=== PATIENT | male | born 1940 | race African-American/Black ===

== ENCOUNTER 2024-07-13 10:26 | Emergency (ER) | payer OTHER ==
[~2024-07-13] VITALS: Ht 162.6 cm; Wt 69.0 kg
--- NOTE | 2024-07-13 11:05 | ED.PDOC ---
General HPI Comments VITALS: T:99.0 HR:67 RR:18 O2:96 BP:128/65 SOCIAL HX: DENIES TOBACCO USAGE, ETOH CONSUMPTION, OR ILLICIT DRUG USE SHX: BLADDER PMHX: BLADDER MEDICATIONS: ANTIBIOTICS ALLERGIES: NKA HPI: Poor Historian. 84-year-old male status post some type of urinary bladder procedure yesterday where he also received a Babcock catheter after the procedure and was discharged home on antibiotics. He complaints of the Babcock catheter is coming loose and disconnected from his body and when he urinates it is not going in the bag. Denies any pain or any other acute symptoms. REVIEW OF SYSTEMS: CONSTITUTIONAL: Denies acute: fever, diaphoresis, chills, generalized weakness. HEAD: Denies acute: headache, photophobia Eyes: Denies acute: Double vision, vision loss, eye pain, eye discharge. EARS: Denies acute: tinnitus, hearing loss, ear discharge, ear pain, THROAT: Denies acute: sore throat, swelling, difficulty swallowing , pain with swallowing, change in voice. NECK: Denies acute: neck pain, neck swelling, stiff neck. HEART: Denies acute : chest pain, palpitations, LUNGS: Denies acute: SOB, wheezing, cough, hemoptysis ABDOMEN: Denies acute: abdominal pain, Nausea, Vomiting, diarrhea, melena , hematemesis, hematochezia SKIN: Denies acute: rash, redness, lesions, itchiness. EXTREMITIES: Denies acute: calf pain, numbness, tingling, weakness, denies pain in extremity. Denies acute: Low back pain. Neuro: Denies acute: focal neurological deficit, motor or sensory focal neurological deficit, tremors, seizure like activity, confusion, dizziness, change in mental status, loss of bowel or bladder function, cauda equina like symptoms. : Denies acute: dysuria, hematuria, flank pain, increase in urinary frequency. PSYCH: Denies acute: hallucination, suicidal ideation, homicidal ideation. PHYSICAL EXAM: General: no acute distress, awake and alert. Head: normocephalic, atraumatic. Neck: supple, trachea is midline, no swelling. Throat: Normal phonation. Eyes:, no erythema, no purulent discharge, no proptosis, no icterus. Heart: regular rate, regular rhythm, no significant murmur appreciated. Lungs: no apparent respiratory distress, Able to speak in full sentences. No wheezing, no rhonchi, no crackles. No stridors Clear to auscultation bilaterally. Abdomen: non tender to palpation, non distended, soft, no guarding, no rebound, + bowel sounds. Neuro: Awake, Alert, oriented to name, self, situation, follows commands GCS=15. Speech is normal. Skin: no petechia, no purpura, no cyanosis, non-pale, not jaundice. Lower extremities: --no - Pitting edema no deformity, no focal swelling, no calf TTP. Makes eye contact. moves all four extremities. Face: no apparent facial droop. Ambulating in the ED independently. Chief Complaint: Tube Replacement Time Seen by MD: 10:40 Primary Care Provider: MARISOL GATES Reviewed notes: Nurses Notes, Medications, Allergies Allergies: Coded Allergies: NO KNOWN ALLERGIES (Unverified , 07/13/24) Information Source: Patient Mode of Arrival: Ambulatory Severity: Mild Timing: Days Duration: Since onset Symptoms: None History of: None Location: None Penile discharge: None Modifying factors: None associated signs and symptoms: None X-Ray, Labs, Meds, VS Vital Signs Date Time Temp Pulse Resp B/P (MAP) Pulse Ox O2 Delivery O2 Flow Rate FiO2 07/13/24 10:44 99.0 67 18 128/65 (86) 96 Time of 1ST Reevaluation: 11:20 Reevaluation 1ST: Unchanged Patient Education/Counseling: Diagnosis, Treatment Family Education/Counseling: No Family Present Comments 84-year-old male status post some type of urinary bladder procedure yesterday where he also received a Babcock catheter after the procedure and was discharged home on antibiotics. Patient was found with the above mentioned diagnosis. the following medications were ordered: NONE the following tests were ordered: NONE Patient ED course and VS have been stabilized. Patient has been reassessed in the ED and remained in a stable condition. Pertinent incidental findings were discussed with the patient and/or family. Patient/family voices understanding and is agreeable with plan. Patient has been observed in the ED adequate length of time to insure improvement/stability. Escalation of care considered: Consideration of escalation to observation or admission Patient was discharged. All the reports of any imaging studies that were ordered by myself were reviewed by myself. Departure 1 Departure Time of Disposition: 11:26 Impression: Primary Impression: Babcock catheter problem Disposition: HOME / SELF CARE / HOMELESS Condition: Stable Additional Instructions: Additional discharge instructions: You MUST follow-up with your primary care/family doctor in 1 to 2 days. If you are unable to see your primary care/family doctor, please return to our emergency room for re-assessment and re-evaluation in 1 to 2 days. Return to the emergency room here in our facility or to the nearest ER [facility] if your symptoms change or worsen. CONSULTATIONS: you MUST Follow-up for consultation as soon as possible with: -urology in 1-2 days. Please call for appointment. You MUST call the consultants office yourself to make an appointment. You may need to arrange that through your insurance and/or your primary/family doctor. If you are unable to see the senior sales consultant in 1 to 2 days, you must return to our emergency room (or any other ER of your choice) for re-assessment and re- evaluation. Adequate fluid hydration. Continue taking antibiotics at home. Below is a copy of your radiological report for follow up: Discharged With: Self Critical Care Note Critical Care Time?: No Stability Stability form required: No I personally scribed for TOBY LINARES DO ([email or web address]) on 07/13/24 at 11:05. Electronically submitted by Ainsley Benito ([email or web address]). I personally scribed for TOBY LINARES DO ([email or web address]) on 07/13/24 at 11:21. Electronically submitted by Ainsley Benito ([email or web address]). I personally scribed for TOBY LINARES DO ([email or web address]) on 07/13/24 at 11:41. Electronically submitted by Ainsley Benito ([email or web address]). TOBY LINARES DO Jul 13, 2024 11:05
[2024-07-13 13:16] VITALS: BP 134/86; PULSE 80; RESP 20; TEMP 98; O2SAT 97
[2024-07-13] MEDS ORDERED: LIDOCAINE HCL 2% TOP JELLY 5ML TOP ONE (13:16)
[2024-07-13] MEDS: LIDOCAINE 2% TOPICAL JELLY 5 ML URJT TOP ONE (13:29)
[2024-07-13 13:46] LABS: Urine Bacteria None Seen /hpf (None Seen)
[2024-07-13 14:03] LABS: Urine Blood 3+ /uL (Negative); Urine Clarity Turbid (Clear); Urine Color Colorless (Yellow); Urine Protein, UAD TRACE (Negative); Urine Specific Gravity 1.018 (1.001-1.035); Urine Squamous Epithelial Cell FEW /hpf (<5); Urine Urobilinogen Normal (Negative); Urine WBC 15 /hpf (0 - 3); Urine pH 5.5 (5.0-9.0)
== END 2024-07-13 13:55 | disposition home or self-care (01) ==
LOC: ER 10:26 → EDBD 10:26 → ER 13:55
DX: T83.018A Breakdown (mechanical) of other urinary catheter, initial encounter (principal); Y92.89 Other specified places as the place of occurrence of the external cause
CPT/HCPCS: 51702; 81001